=== PATIENT | female | born 1960 | race African-American/Black ===

== ENCOUNTER → 2017-05-25 | Outpatient (CLI) | payer SELFPAY ==
[~2017-05-25] MED LIST: HYDROCHLOROTH12.5 M3 PO
== END | disposition home or self-care (01) ==
LOC: RAD 11:07
DX: M25.552 Pain in left hip (principal); M25.562 Pain in left knee
CPT/HCPCS: 73502; 73560

== ENCOUNTER → 2017-07-31 | Outpatient (CLI) | payer OTHER ==
[~2017-07-31] MED LIST changes: +MOTRIN600 MG PO; +NAPROSYN500 MG PO; +NORCO 5/3251 TABLET PO; +PRAVACHOL40 MG PO
== END | disposition home or self-care (01) ==
LOC: CDC 10:41
DX: Z01.810 Encounter for preprocedural cardiovascular examination (principal); I49.3 Ventricular premature depolarization
CPT/HCPCS: 93000

== ENCOUNTER 2017-08-04 08:55 | Day surgery (SDC) | payer OTHER ==
[~2017-08-04] VITALS: Ht 170.2 cm; Wt 66.6 kg
[~2017-08-04 08:55] MED LIST changes: -MOTRIN600 MG PO; -NORCO 5/3251 TABLET PO
[2017-08-04 09:14] VITALS: BP 135/84
[2017-08-04] MEDS ORDERED: MOTRIN600 MG PO (11:25)
[2017-08-04] MEDS ORDERED: NORCO 5/3251 TABLET PO (11:25)
[2017-08-04 12:00] VITALS: BP 110/79
[2017-08-04 12:55] VITALS: BP 118/64
== END 2017-08-04 13:10 | disposition home or self-care (01) ==
LOC: SDC
PROC: 0UBC7ZX Excision of Cervix, Via Natural or Artificial Opening, Diagnostic (ICD-10-PCS; principal; 2017-08-04)
DX: N87.0 Mild cervical dysplasia (principal); I10 Essential (primary) hypertension; F17.200 Nicotine dependence, unspecified, uncomplicated; D68.318 Other hemorrhagic disorder due to intrinsic circulating anticoagulants, antibodies, or inhibitors; Z80.0 Family history of malignant neoplasm of digestive organs; Z80.3 Family history of malignant neoplasm of breast; Z80.42 Family history of malignant neoplasm of prostate
CPT/HCPCS: 88305; 88307; J1100; J1885; J2250; J2405; J3010